=== PATIENT | female | born 1975 | race Caucasian/White ===

== ENCOUNTER 2020-09-21 21:20 | Emergency (ER) | payer SELFPAY ==
[~2020-09-21] VITALS: Ht 160 cm; Wt 54.0 kg
[2020-09-21] MEDS ORDERED: KETOROLAC 30MG/ML VIAL IV STA (21:33)
[2020-09-21] MEDS ORDERED: ONDANSETRON HCL 4MG/2ML INJ IV STA (21:33)
[2020-09-21] MEDS ORDERED: LORAZEPAM 2MG/ML CPJ IV ONE (21:45)
[2020-09-21] MEDS ORDERED: SODIUM CHLORIDE 0.9% 1,000 ML IV ONE (21:45)
[2020-09-21 22:53] LABS: BASOPHILS % 0.5 % (0.0-2.0); EOSINOPHILS % 0.5 % (0.0-5.0); HEMATOCRIT. 45.4 % (36.0-48.0); HEMOGLOBIN. 15.4 g/dL (12.0-16.0); LYMPHOCYTES % 28.5 % (20.0-50.0); MEAN CORPUSCULAR HEMOGLOBIN 28.7 pg (28.0-32.0); MEAN CORPUSCULAR VOLUME 84.5 fL (81.0-99.0); MEAN PLATELET VOLUME 8.7 fl (7.4-10.4); MONOCYTES % 10.7 % (2.0-8.0); NEUTROPHILS % 59.8 % (40.0-76.0); PLATELET 387 x1000/uL (130-400); RED BLOOD CELL COUNT 5.37 mill/uL (4.2-5.4); RED CELL DISTRIBUTION WIDTH 14.9 % (11.6-14.6)
[2020-09-21 23:00] LABS: CHLORIDE 108 mEq/L (98-107)
[2020-09-21 23:03] LABS: HCG SCREEN NEGATIVE; PROTHROMBIN TIME 10.6 sec (9.6-11.0)
[2020-09-21 23:04] LABS: ETHANOL BLOOD < 10 mg/dL
[2020-09-22] VITALS: BP 135/88
[2020-09-22 00:24] LABS: CLARITY URINE TURBID (CLEAR); COLOR URINE DK YELLOW (YELLOW); KETONES URINE 1+ (NEGATIVE); LEUKOCYTE ESTERASE URINE 3+ (NEGATIVE); NITRITE URINE NEGATIVE (NEGATIVE); OCCULT BLOOD URINE 1+ (NEGATIVE); PH URINE 6.5 (4.5-8.0); PROTEIN URINE TRACE (NEGATIVE); SPECIFIC GRAVITY URINE 1.024 (1.005-1.030)
[2020-09-22 00:38] LABS: *BARBITURATES SCREEN URINE NEGATIVE (NEGATIVE); *BENZODIAZEPINES SCREEN URINE NEGATIVE (NEGATIVE); METHADONE URINE SCREEN NEGATIVE (NEGATIVE)
[2020-09-22 00:39] LABS: PHENCYCLIDINE URINE SCREEN NEGATIVE (NEGATIVE)
[2020-09-22 00:46] LABS: *AMPHETAMINES SCREEN URINE PRESUMTIVE POSITIVE (NEGATIVE); *COCAINE SCREEN URINE PRESUMTIVE POSITIVE (NEGATIVE); CANNABINOID URINE SCREEN PRESUMTIVE POSITIVE (NEGATIVE); OPIATES URINE SCREEN PRESUMTIVE POSITIVE (NEGATIVE)
[2020-09-22] MEDS ORDERED: ONDA4TAB5 MT (00:58)
[2020-09-22] MEDS ORDERED: NALO4SPR BOTHNSTRLS (00:58)
[2020-09-22] MEDS ORDERED: NITR-87 MT (01:04)
== END 2020-09-22 01:16 | disposition home or self-care (01) ==
LOC: ER 21:20
DX: N39.0 Urinary tract infection, site not specified (principal); F11.23 Opioid dependence with withdrawal; T43.625A Adverse effect of amphetamines, initial encounter; Y92.89 Other specified places as the place of occurrence of the external cause; M79.18 Myalgia, other site; R11.2 Nausea with vomiting, unspecified
CPT/HCPCS: 36415; 71045; 80053; 80305; 80320; 81003; 83690; 83880; 84484; 84703; 85025; 85610; 93005; 96361; 96374; 96375; 99285; C1893; J1885; J2060; J2405; J7030; Z7610; G0480

== ENCOUNTER 2021-03-16 19:05 | Emergency (ER) | payer SELFPAY ==
[~2021-03-16] VITALS: Ht 157.5 cm; Wt 54.0 kg
[~2021-03-16 19:05] MED LIST: NALO4SPR BOTHNSTRLS; NITR-87 MT; ONDA4TAB5 MT
[2021-03-16 19:08] VITALS: BP 126/80
[2021-03-17] MEDS ORDERED: NALO4SPR BOTHNSTRLS (22:16)
== END 2021-03-17 00:09 | disposition left against medical advice (07) ==
LOC: ER 19:05
DX: Z53.21 Procedure and treatment not carried out due to patient leaving prior to being seen by health care provider (principal)

== ENCOUNTER 2021-03-17 19:04 | Emergency (ER) | payer SELFPAY ==
[~2021-03-17] VITALS: Ht 162.6 cm; Wt 54.0 kg
[2021-03-17] MEDS ORDERED: NALO4SPR BOTHNSTRLS (22:16)
[2021-03-17 22:30] VITALS: BP 108/72
== END 2021-03-17 22:49 | disposition home or self-care (01) ==
LOC: ER 19:04
DX: Z20.822 Contact with and (suspected) exposure to COVID-19 (principal); J11.1 Influenza due to unidentified influenza virus with other respiratory manifestations; F15.10 Other stimulant abuse, uncomplicated; F11.10 Opioid abuse, uncomplicated; Z71.51 Drug abuse counseling and surveillance of drug abuser
CPT/HCPCS: 99283; C9803; U0003; U0005